=== PATIENT | female | born 1975 | race Caucasian/White ===

== ENCOUNTER 2018-10-31 11:48 | Emergency (ER) | payer OTHER ==
--- NOTE | 2018-10-31 12:03 | ED Physician Documentation ---
PD HPI FOCAL NEURO - Stated complaint Stated Complaint: RIGHT SIDE NUMB - Chief complaint Chief Complaint: Ext Problem - History obtained from History obtained from: Patient - History of Present Illness Timing - onset: How many weeks ago (1) Timing - duration: Weeks (1) Timing - details: Gradual onset (She started a week ago with a feeling of numbness in thumb blurriness of the right arm and hand. She had history of carpal tunnel syndrome and thought it might be that. However she is noticing trouble pinching with her thumb and index finger. She had numb feeling on the upper arm and forearm. She states a few days prior to that she had had a significant headache in the right side that just lasted for a day. She denies any lightheadedness. She states she feels slightly off balance walking. She saw her primary care and was treated with medications for possible pinched nerve from the neck or shoulder to the arm. She states the last day she is had a numbness feeling of the right thigh and foot as well. She denies any recurring headache.), Waxing and waning Severity of deficit: Mild Weakness: No: Face, Arm, Leg Numbness: Arm, Hand, Leg, Foot, Right. No: Face Associated symptoms: Headache (2 weeks ago for a day). No: Nausea / vomiting, Syncope, Head injury Contributing factors: negative: Anticoagulated, Vascular dz, Atrial fibrillation Baseline status: positive: A&OX3, ambulatory, indep Similar symptoms before: Has not had sx before Recently seen: Clinic Review of Systems Constitutional: reports: Fatigue. denies: Fever, Chills, Myalgias Ears: reports: Tinnitus/ringing (intermittent for longer term) Nose: denies: Rhinorrhea / runny nose, Congestion Throat: denies: Sore throat Respiratory: denies: Dyspnea, Cough GI: denies: Abdominal Pain, Nausea, Vomiting, Diarrhea Skin: denies: Rash, Lesions Neurologic: reports: Numbness, Other (feeling some off balance at times). denies: Focal weakness PD PAST MEDICAL HISTORY - Past Medical History Cardiovascular: None Respiratory: None Neuro: None Endocrine/Autoimmune: None - Present Medications Home Medications: Ambulatory Orders Medication Instructions Recorded Confirmed Dexamethasone [Decadron] 4 mg PO DAILY #5 tablet 10/31/18 - Allergies Allergies/Adverse Reactions: Allergies Allergy/AdvReac Type Severity Reaction Status Date / Time povidone-iodine Allergy Rash Verified 10/31/18 11:58 [From Betadine] soap [From Betadine] Allergy Rash Verified 10/31/18 11:58 Sulfa (Sulfonamide Allergy Unknown Verified 10/31/18 11:57 Antibiotics) - Living Situation Living Situation: reports: With spouse/s.o. Living Arrangement: reports: At home - Family History Family history: reports: Non contributory. denies: CAD PD ED PE NORMAL - Vitals Vital signs reviewed: Yes - General General: Alert and oriented X 3, No acute distress, Well developed/nourished - HEENT HEENT: Moist mucous membranes, Pharynx benign - Neck Neck: Supple, no meningeal sign, No adenopathy, No JVD - Cardiac Cardiac: RRR, No murmur - Respiratory Respiratory: Clear bilaterally - Abdomen Abdomen: Soft, Non tender - Back Back: No CVA TTP - Derm Derm: Normal color, Warm and dry - Extremities Extremities: No deformity, No tenderness to palpate, Normal ROM s pain, No edema, No calf tenderness / cord - Neuro Neuro: Alert and oriented X 3, No motor deficit, Normal speech, Other (Subjective decreased sensation to touch on the right biceps area and right forearm and by the thumb. There is perhaps slightly weaker shop girl on the right side. There is decreased sensation to touch on the thigh on the right. She can discriminate sharp dull. There is no obvious weakness of the leg. She is walking without any noted ataxia.) Eye Opening: Spontaneous Motor: Obeys Commands Verbal: Oriented GCS Score: 15 Results - Vitals Vitals: Vital Signs - 24 hr 10/31/18 10/31/18 11:54 14:20 Temperature 36.8 C Heart Rate 62 66 Respiratory 18 14 Rate Blood Pressure 123/78 112/62 O2 Saturation 100 99 Oxygen O2 Source Room air - Labs Labs: Laboratory Tests 10/31/18 10/31/18 10/31/18 12:39 12:39 12:39 WBC 8.0 RBC 4.00 L Hgb 10.8 L Hct 33.7 L MCV 84.4 MCH 27.1 MCHC 32.1 RDW 14.9 Plt Count 341 MPV 8.0 Neut # (Auto) 4.7 Lymph # (Auto) 2.4 Hendry # (Auto) 0.8 Eos # (Auto) 0.1 Baso # (Auto) 0.1 Absolute Nucleated RBC 0.00 Nucleated RBC % 0.0 ESR 11 Sodium 137 Potassium 3.8 Chloride 105 Carbon Dioxide 23 Anion Gap 9.0 BUN 12 Creatinine 0.7 Estimated GFR (MDRD) 91 Glucose 87 Calcium 9.2 Magnesium 2.0 Total Bilirubin 0.5 AST 17 ALT 16 Alkaline Phosphatase 30 L Total Creatine Kinase 44 Total Protein 7.1 Albumin 3.9 Globulin 3.2 Albumin/Globulin Ratio 1.2 Lipase 44 TSH 10/31/18 12:39 WBC RBC Hgb Hct MCV MCH MCHC RDW Plt Count MPV Neut # (Auto) Lymph # (Auto) Hendry # (Auto) Eos # (Auto) Baso # (Auto) Absolute Nucleated RBC Nucleated RBC % ESR Sodium Potassium Chloride Carbon Dioxide Anion Gap BUN Creatinine Estimated GFR (MDRD) Glucose Calcium Magnesium Total Bilirubin AST ALT Alkaline Phosphatase Total Creatine Kinase Total Protein Albumin Globulin Albumin/Globulin Ratio Lipase TSH 1.72 - Rads (name of study) head CT and angio Radiology: Prelim report reviewed (No acute process), See rad report PD MEDICAL DECISION MAKING - ED course Complexity details: reviewed results, re-evaluated patient, considered differential, d/w patient Departure - Departure Disposition: Home, Self Care Clinical Impression: Right sided numbness Condition: Stable Record reviewed to determine appropriate education?: Yes Instructions: ED Paraesthesias Prescriptions: Dexamethasone [Decadron] 4 mg PO DAILY #5 tablet Comments: Your blood tests as well as your CT scan/MCCLURE are appearing normal. There is no signs of tumor/stroke/bleeding/aneurysm or flow abnormality in the brain and neck area. You may be having numbness feeling in the arm and leg separately because of nerve irritation from the cervical and lumbar areas with "pinched nerve". Follow-up with your primary care this coming week for consideration of potential MRI brain as the CT scans we did could miss small subtleties such as MS. Return if worsening symptoms or new problems develop. Continue your current medications you are taking and you can add Decadron steroid for inflammation of the nerves daily for the next 5 days. Discharge Date/Time: 10/31/18 14:21
[2018-10-31] MEDS ORDERED: SODIUM CHLORIDE 0.9% 1,000 ML IV ONE (12:26)
[2018-10-31] MEDS ORDERED: IOVERSOL 320 100 ML VIAL IVP ONE (12:40)
[2018-10-31 12:50] LABS: BASOPHILS # (AUTO) 0.1 10^3/uL (0.0-0.1); BASOPHILS % (AUTO) 0.6 %; EOSINOPHILS # (AUTO) 0.1 10^3/uL (0.0-0.7); EOSINOPHILS % (AUTO) 1.2 %; HGB - HEMOGLOBIN 10.8 g/dL (12.0-16.0); LYMPHOCYTES # (AUTO) 2.4 10^3/uL (1.5-3.5); LYMPHOCYTES % (AUTO) 30.3 %; MEAN CORPUSCULAR HEMOGLOBIN 27.1 pg (27.0-31.0); MEAN CORPUSCULAR HGB CONC 32.1 g/dL (32.0-36.0); MEAN CORPUSCULAR VOLUME 84.4 fL (81.0-99.0); MONOCYTES # (AUTO) 0.8 10^3/uL (0.0-1.0); MONOCYTES % (AUTO) 9.7 %; NEUTROPHILS # (AUTO) 4.7 10^3/uL (1.5-6.6); NEUTROPHILS % (AUTO) 58.2 %; PLT - PLATELET COUNT 341 10^3/uL (130-450); RED CELL DISTRIBUTION WIDTH 14.9 % (12.0-15.0)
[2018-10-31 13:07] LABS: ALBUMIN 3.9 g/dL (3.2-5.5); ALBUMIN/GLOBULIN RATIO 1.2 (1.0-2.2); BILIRUBIN,TOTAL 0.5 mg/dL (0.2-1.0); CALCIUM 9.2 mg/dL (8.5-10.3); CREATININE 0.7 mg/dL (0.4-1.0); TOTAL PROTEIN 7.1 g/dL (6.7-8.2)
--- NOTE | 2018-10-31 13:33 | CT Report ---
Reason: right arm and leg numbness; right headache Procedure Date: 10/31/2018 Accession Number: [id number] / [id number] Procedure: CT - ANGIO HEAD W CPT Code: FULL RESULT: EXAM: CT ANGIOGRAM HEAD. CT SCAN OF THE HEAD WITHOUT AND WITH CONTRAST. EXAM DATE: 10/31/2018 01:06 PM CLINICAL HISTORY: 43-year-old female. Right arm and leg numbness; right headache. COMPARISON: None. TECHNIQUE: - CT Scan Head: Using a multidetector scanner, axial images were acquired from the foramen magnum to the skull vertex prior to and following contrast administration. - CT Angiogram: Using a multidetector scanner, high-resolution axial images were acquired from the skull base through vertex following rapid infusion of intravenous contrast. Reformats: Multiplanar MIP reformats were reconstructed. Nascet criteria used for stenosis measurement. IV Contrast: 100 cc Optiray [address] protocol optimization, one or more of the following dose reduction techniques were utilized for this exam: automated exposure control, adjustment of mA and/or KV based on patient size, or use of iterative reconstructive technique. FINDINGS: NON-CONTRAST HEAD: Parenchyma: No intraparenchymal hemorrhage. No evidence of mass, midline shift, or CT findings of infarction. Hoyt-white differentiation is distinct. Extraaxial Spaces: Normal for age. No subdural or epidural collections identified. Ventricles: Normal in size and position. Sinuses and orbits: Imaged paranasal sinuses, orbits, and mastoids show no significant abnormality. Bones: No evidence of fracture or calvarial defect. Other: None. POST-CONTRAST HEAD: No abnormal enhancement. CT ANGIOGRAM HEAD: RIGHT: Internal Carotid artery: No evidence of dissection. No evidence of aneurysm along the intracranial ICA. Anterior Cerebral Artery: Patent without significant stenosis, aneurysm, or vascular malformation. Middle Cerebral Artery: Patent without significant stenosis, aneurysm, or vascular malformation. Posterior Cerebral Artery: Patent without significant stenosis, aneurysm, or vascular malformation. Posterior Communicating Artery: Patent. No aneurysm. Vertebral Artery: Patent without significant stenosis. No evidence of dissection. LEFT: Internal Carotid artery: No evidence of dissection. No evidence of aneurysm along the intracranial ICA. Anterior Cerebral Artery: Patent without significant stenosis, aneurysm, or vascular malformation. Middle Cerebral Artery: Patent without significant stenosis, aneurysm, or vascular malformation. Posterior Cerebral Artery: Patent without significant stenosis, aneurysm, or vascular malformation. Posterior Communicating Artery: Patent. No aneurysm. Vertebral Artery: Patent without significant stenosis. No evidence of dissection. CENTRAL: Anterior Communicating Artery: Patent. No aneurysm. Basilar Artery: Patent without significant stenosis. No aneurysm. DURAL VENOUS SINUSES AND MAJOR CENTRAL VEINS: Patent. IMPRESSION: 1. CT Head: No acute intracranial abnormality. Specifically, no evidence of acute infarct, hemorrhage, or mass lesion. No abnormal enhancement. 2. CTA Head: Normal CTA of the head. No significant vascular stenosis, dissection, or aneurysm. 3. Concurrently obtained CTA neck is dictated separately. RADIA
--- NOTE | 2018-10-31 13:39 | CT Report ---
Reason: right arm and leg numbness; right headache days Procedure Date: 10/31/2018 Accession Number: [id number] / [id number] Procedure: CT - ANGIO NECK W/WO CPT Code: FULL RESULT: EXAM: CT ANGIOGRAM NECK EXAM DATE: 10/31/2018 01:06 PM. CLINICAL HISTORY: Right arm and leg numbness; right headache days. COMPARISON: HEAD ANGIO 10/31/2018 1:01 PM. TECHNIQUE: Routine axial helical imaging was performed from the skull base through the aortic arch. Reconstructions: Routine multiplanar 3D MIP reconstructions. IV Contrast: CE. Evaluation of arterial stenosis is based on a NASCET method of measurement. In accordance with CT protocol optimization, one or more of the following dose reduction techniques were utilized for this exam: automated exposure control, adjustment of mA and/or KV based on patient size, or use of iterative reconstructive technique. FINDINGS: Right Carotid: The common carotid, internal carotid, and external carotid arteries are widely patent. No dissection, significant atherosclerotic plaque, or calcification identified. Left Carotid: The common carotid, internal carotid, and external carotid arteries are widely patent. No dissection, significant atherosclerotic plaque, or calcification identified. Vertebrals: The vertebrobasilar system shows no stenoses. Intracranial Circulation: Concurrently obtained CTA head is dictated separately. Other: The visualized lung apices are clear. The visualized osseous structures demonstrate no acute abnormality. The visualized soft tissues of the neck demonstrate no acute abnormality. IMPRESSION: Normal neck CT angiogram. No hemodynamically significant stenoses. RADIA
[2018-10-31] MEDS ORDERED: DEXAMETHASONE 10 MG/ML VIAL IVP STA (14:06)
[2018-10-31 14:21] VITALS: BP 112/62
[2018-11-02] MEDS ORDERED: IOVERSOL 320 100 ML VIAL IVP ONE (15:31)
== END 2018-10-31 14:21 | disposition home or self-care (01) ==
LOC: ED 11:48
DX: R20.0 Anesthesia of skin (principal)
CPT/HCPCS: 36415; 70496; 70498; 82550; 83690; 83735; 85651; 96361; 96374; 99283; Q9967; 80053; 84443; 85025

== ENCOUNTER 2020-11-12 14:42 | Outpatient (CLI) | payer OTHER ==
--- NOTE | 2020-11-13 13:16 | Mammography Report ---
BILATERAL DIGITAL SCREENING MAMMOGRAM 3D/2D: 11/12/2020 CLINICAL: Routine screening. Comparison is made to exams dated: 01/24/2020 mammogram, 11/12/2018 mammogram, and 08/04/2017 mammogram - [facility]. The tissue of both breasts is heterogeneously dense. This may lower the se nsitivity of mammography. No significant masses, calcifications, or other findings are seen in either breast. There has been no significant interval change. IMPRESSION: NEGATIVE There is no mammographic evidence of malignancy. A 1 year screening mammogram is recommended. Future imaging is recommended as follows: 01/24/2021 screening mammogram. This exam was interpreted at Station ID: [id number]. NOTE: For mammograms, a report in lay terms will be sent to the patient. Approximately 15% of breast malignancies will not be visualized mammographically. In the management of a palpable breast mass, a negative mammogram must not discourage biopsy of a clinically suspicious lesion. Electronically Signed By: Terrance Whitney M.D., jr/jessica:11/12/2020 16:03:11 ACR BI-RADS Category 1: Negative 3341F PARENCHYMAL PATTERN: (D) - The breast(s) demonstrate(s) heterogeneously dense fibroglandular jyoti marrufo. BI-RADS CATEGORY: (1) - 1 RECOMMENDATION: (ANNUAL) - Recommend routine annual screening mammography. [id number] 1 year screening LATERALITY: (B)
== END 2020-11-12 14:43 | disposition home or self-care (01) ==
LOC: DI 14:42
DX: Z12.31 Encounter for screening mammogram for malignant neoplasm of breast (principal)

== ENCOUNTER 2021-07-28 16:43 | Emergency (ER) | payer OTHER ==
[2021-07-28 17:33] VITALS: BP 123/94
--- NOTE | 2021-07-28 17:57 | ED Physician Documentation ---
PD HPI HEENT - Stated complaint Stated Complaint: HEADACHE, SORE THROAT - Chief complaint Chief Complaint: Resp - History obtained from History obtained from: Patient - Additional information Additional information: Patient comes emergency department chief complaint of headache behind the eyes and sinus congestion for the last 4 days. Patient received her COVID booster about 5 days ago and symptoms began the next day. She states that she has not had any sick contacts that she knows of. She denies any fevers or chills. No neck stiffness. She has had a moderate dry cough, which has given her sore throat. No other complaints at this time. She does note that eating some spicy foods today helped clear some the congestion out and made her feel little better. Review of Systems Ten Systems: 10 systems reviewed and negative Constitutional: reports: Reviewed and negative Eyes: reports: Reviewed and negative Ears: reports: Reviewed and negative Nose: reports: Congestion Throat: reports: Reviewed and negative Cardiac: reports: Reviewed and negative Respiratory: reports: Cough GI: reports: Reviewed and negative : reports: Reviewed and negative Skin: reports: Reviewed and negative Musculoskeletal: reports: Reviewed and negative Neurologic: reports: Headache Psychiatric: reports: Reviewed and negative Endocrine: reports: Reviewed and negative Immunocompromised: reports: Reviewed and negative PD PAST MEDICAL HISTORY - Past Medical History Cardiovascular: None Respiratory: None Neuro: None Endocrine/Autoimmune: None Musculoskeletal: Other - Present Medications Home Medications: Ambulatory Orders Medication Instructions Recorded Confirmed dexAMETHasone [Decadron] 4 mg PO DAILY #5 tablet 10/31/18 Hydrocodone/Acetaminophen [Lortab 5 ml PO Q6HR PRN #50 ml 07/28/21 10 mg-300 mg/15 ml Elxr] predniSONE [Deltasone] 60 mg PO DAILY 3 Days #9 tablet 07/28/21 - Allergies Allergies/Adverse Reactions: Allergies Allergy/AdvReac Type Severity Reaction Status Date / Time povidone-iodine Allergy Rash Verified 07/28/21 17:32 [From Betadine] soap [From Betadine] Allergy Rash Verified 07/28/21 17:32 Sulfa (Sulfonamide Allergy Unknown Verified 07/28/21 17:32 Antibiotics) - Social History Does the pt smoke?: No Smoking Status: Never smoker PD ED PE NORMAL - Vitals Vital signs reviewed: Yes - General General: Alert and oriented X 3, No acute distress, Well developed/nourished - HEENT HEENT: Atraumatic, PERRL, EOMI, Moist mucous membranes, Other (No sinus tenderness.) - Neck Neck: No adenopathy - Cardiac Cardiac: RRR, No murmur, Strong equal pulses - Respiratory Respiratory: No respiratory distress, Clear bilaterally - Abdomen Abdomen: Soft, Non tender, Non distended - Derm Derm: Normal color, Warm and dry, No rash - Extremities Extremities: No deformity, No edema - Neuro Neuro: Alert and oriented X 3, career services representative 2-12 intact, Normal speech, Other (Grossly normal) - Psych Psych: Normal mood, Normal affect Results - Vitals Vitals: Vital Signs - 24 hr 07/28/21 17:27 Temperature 36.0 C L Heart Rate 77 Respiratory 18 Rate Blood Pressure 123/94 H O2 Saturation 100 Oxygen O2 Source Room air PD MEDICAL DECISION MAKING - ED course Complexity details: considered differential, d/w patient ED course: The patient was quite well-appearing, and I discussed with her that I do not find evidence of a bacterial sinusitis at this time. The patient is advised to treat symptomatically and follow-up with her primary care physician as needed. We discussed the usual indications for return. Departure - Departure Disposition: Home, Self Care Clinical Impression: Viral upper respiratory infection Headache Qualifiers: Headache type: tension-type Headache chronicity pattern: acute headache Intractability: not intractable Qualified Code(s): G44.209 - Tension-type headache, unspecified, not intractable Condition: Stable Instructions: ED Viral Syndrome, ED Headache Tension Prescriptions: Hydrocodone/Acetaminophen [Lortab 10 mg-300 mg/15 ml Elxr] 5 ml PO Q6HR PRN #50 ml PRN Reason: Pain predniSONE [Deltasone] 60 mg PO DAILY 3 Days #9 tablet Comments: Your prescription has been electronically transmitted to [facility] in [place].
--- NOTE | 2021-07-30 15:33 | ED Physician Documentation ---
ED Addendum - Addendum Addendum: 07/30/21 15:33 Took message that Kimberlee did not have the hydrocodone elixir. That pr escription was canceled and a new 1 was sent electronically to the [facility] pharmacy. I was otherwise not involved in patient care.
== END 2021-07-28 18:10 | disposition home or self-care (01) ==
LOC: ED 16:43
DX: J06.9 Acute upper respiratory infection, unspecified (principal); G44.209 Tension-type headache, unspecified, not intractable
CPT/HCPCS: 99282; 99283

== ENCOUNTER 2022-02-05 11:16 | Outpatient (CLI) | payer OTHER ==
--- NOTE | 2022-02-06 09:36 | Mammography Report ---
BILATERAL DIGITAL SCREENING MAMMOGRAM 3D/2D: 02/05/2022 CLINICAL: Routine screening. Comparison is made to exams dated: 11/12/2020 mammogram - [facility], 01/24/2020 ultr asound, 01/24/2020 mammogram, 11/12/2018 mammogram, and 08/04/2017 mammogram - [facility]. T he tissue of both breasts is heterogeneously dense. This may lower the sensitivity of mammography. No significant masses, calcifications, or other findings are seen in either breast. There has been no significant interval change. IMPRESSION: NEGATIVE There is no mammographic evidence of malignancy. A 1 year screening mammogram is recommended. Based on Tyrer-Cuzick model (a risk assessment model), the patient's lifetime risk is 20.4% and her 1 0 year risk is 4.3%. If a patient has an elevated risk, a more comprehensive evaluation should be con sidered and/or a referral to a genetic counselor. The [place] [employer], [place] [employer], and NCCN Guidelines advise the consideration of Breast MRI as an adjunct to screening mammog oni in patients whose "Lifetime risk to develop breast cancer" is 20% or higher. This exam was interpreted at Station ID: [id number]. NOTE: For mammograms, a report in lay terms will be sent to the patient. Approximately 15% of breast malignancies will not be visualized mammographically. In the management of a palpable breast mass, a negative mammogram must not discourage biopsy of a clinically suspicious lesion. Electronically Signed By: Viet [email or web address]/[email or web address]:02/05/2022 16:02:53 ACR BI-RADS Category 1: Negative 3341F PARENCHYMAL PATTERN: (D) - The breast(s) demonstrate(s) heterogeneously dense fibroglandular jyoti marrufo. BI-RADS CATEGORY: (1) - 1 RECOMMENDATION: (ANNUAL) - Recommend routine annual screening mammography. [id number] 1 year screening LATERALITY: (B)
== END 2022-02-05 11:17 | disposition home or self-care (01) ==
LOC: DI.N 11:16
PROVIDERS: ATTEND Nurse Practitioner Acute Care
DX: Z12.31 Encounter for screening mammogram for malignant neoplasm of breast (principal)

== ENCOUNTER 2023-02-02 14:37 | Outpatient (CLI) | payer OTHER ==
--- NOTE | 2023-02-04 09:24 | Mammography Report ---
BILATERAL DIGITAL SCREENING MAMMOGRAM 3D/2D: 02/02/2023 CLINICAL: Routine screening. Comparison is made to exams dated: 02/05/2022 mammogram, 11/12/2020 mammogram - [facility], 01/24/2020 ultrasound, 01/24/2020 mammogram, 11/12/2018 mammogram, and 08/04/2017 mammogram - [facility]. There are scattered areas of fibroglandular density in both breasts (category b / 25%-50% glandular t issue). No significant masses, calcifications, or other findings are seen in either breast. There has been no significant interval change. IMPRESSION: NEGATIVE There is no mammographic evidence of malignancy. A 1 year screening mammogram is recommended. Based on the Tyrer Cuzick model (a risk assessment model) the patients lifetime risk is 13.9% and he r 10 year risk is 3.0%. According to the ACR, ACS, and NCCN guidelines, an annual breast MRI exam rosemary ng with mammogram is recommended if the patients lifetime risk is 20% or greater. This exam was interpreted at Station ID: [id number]. NOTE: For mammograms, a report in lay terms will be sent to the patient. Approximately 15% of breast malignancies will not be visualized mammographically. In the management of a palpable breast mass, a negative mammogram must not discourage biopsy of a clinically suspicious lesion. Electronically Signed By: Ale rivera/jessica:02/03/2023 13:24:27 letter sent: No_Letter ACR BI-RADS Category 1: Negative 3341F PARENCHYMAL PATTERN: (A) - The breast(s) demonstrate(s) scattered fibroglandular densities. BI-RADS CATEGORY: (1) - 1 Mammogram [id number] 1 year screening LATERALITY: (B)
== END 2023-02-02 14:38 | disposition home or self-care (01) ==
LOC: DI.N 14:37
PROVIDERS: ATTEND Internal Medicine
DX: Z12.31 Encounter for screening mammogram for malignant neoplasm of breast (principal)